=== PATIENT | female | born 1945 | race Caucasian/White ===

== ENCOUNTER 2017-01-30 16:17 | Emergency (ER) | payer MEDICARE, BC ==
--- NOTE | 2017-01-30 17:35 | CT REPORT ---
HISTORY: Fall without LOC COMPARISON: Head CT 07/17/2016 TECHNIQUE: Axial non-contrast images obtained from skull vertex through foramen magnum. Dose reduction technique was utilized. FINDINGS: BRAIN: There is no atrophy. No acute intracranial hemorrhage. No mass effect or hydrocephalus. There is n o CT evidence of infarction. BONES AND EXTRACRANIAL SOFT TISSUES: The orbits are unremarkable. The paranasal sinuses and mastoid air cells are clear. The calvarium is intact. Mild right frontal scalp soft tissue swelling. IMPRESSION: 1. No acute intracranial abnormality. 2. Mild right frontal scalp soft tissue swelling Final Electronic Signature: This report was electronically signed by Liam Plaza MD on 01/30/2017 5:33 PM. jan /
--- NOTE | 2017-01-30 18:17 | ER NURSING DOCUMENTATION ---
Nurse's Notes [facility] Name:Alejandra Clarke Age:72 yrs Sex:Female :1945 Arrival Date:01/30/2017 Time:16:17 Bed1 Private MD:Marisol Falk Diagnosis:Head Injury Presentation: 01/30 16:20 Acuity: DEVONTE 3 rh Triage Assessment: 16:43 General: Appears in no apparent distress, Behavior is cooperative. Pain: Complains of rh pain in HEADACHE. EENT: Oral mucosa is moist. Neuro: Level of Consciousness is awake, alert, obeys commands, Oriented to person, place, time, event, Operational Communication Chief are equal bilaterally Moves all extremities. Gait is steady, Speech is normal, Reports headache. Cardiovascular: Capillary refill < 3 seconds. Respiratory: Airway is patent. Derm: Skin is intact, is healthy with good turgor, Skin is pink, warm & dry. Injury Description: Laceration sustained to top of head is clean, superficial, 0.5 to 2.5 cm long, was sustained less than 30 minutes ago. is bleeding no active bleeding noted. Historical: - Allergies: Lovenox; - Home Meds: 1. Valtrex Oral 2. Trentinoin 3. Latisse 4. ProAir 5. Coumadin Oral 6. atorvastatin oral 7. Lasix Oral 8. Protonix Oral 9. pentoxifylline oral 10. Ambien Oral 11. Nystatin Topical 12. Norvasc Oral 13. carvedilol oral 14. Potassium Chloride Oral 15. Ferrous Sulfate Oral 16. Fentanyl Patch Topical 17. Probiotic Complex oral 18. Zyrtec Oral 19. Ramipril Oral 20. Aspirin Oral 21. Keflex Oral 22. Prednisone Oral 23. Aspirin Oral - PMHx: C-difficile; ANEMIA; HIGH CHOLESTEROL; Hypynatremia; Hypokalemia; HYPERTENSION; HEART MURMUR; SLEEP APNEA; DEPRESSION; Hip osteoaarthritis; Hypercoaguable state; Hyperparathyroidism; Pulmonary embolism; GERD; Sepsis (February 21, 2016); Hypoxemia; Endocarditis; Osteomyelitis of toe; LUPUS; DVT lower extremity, recurrent; peripheral neuropathy; Connective tissue disease; Head Contusion, Unspecified Part of Head (July 17, 2016); - PSHx: TUBAL LIGATION; C section; Arthroscopy shoulder; raynauds; - Tetanus: < 10 years. - Ebola Screening: : Patient negative for fever greater than or equal to 101.5 degrees Fahrenheit, and additional compatible Ebola Virus Disease symptoms. - Immunization history: Flu Vaccine < 1 year. - Social history: Smoking status: Patient states was never smoker of tobacco. Screenin:44 Infectious Disease Risk None. Abuse screen: Denies threats or abuse. Denies injuries rh from another. Nutritional screening: No deficits noted. Assessment: 16:44 See Triage Assessment done by same RN. rh Vital Signs: 16:44 BP 125 / 46; Pulse 58; Resp 17; Temp 98.6(O); Pulse Ox 94% on R/A; Weight 65.77 kg; rh Height 4 ft. 11 in. (149.86 cm); Pain 3/10; 16:44 Body Mass Index 29.29 (65.77 kg, 149.86 cm) rh ED Course: 16:19 Patient arrived in ED. ama 16:20 Marisol Falk MD is Private Physician. ama 16:20 Triage completed. rh 16:35 Marsha Davis is Primary Nurse. rh 16:40 Notified ED Physician of patient's arrival and chief complaint. Dr. Roberts. rh 16:44 Valuables Remains with patient Patient has correct armband on for positive rh identification. Bed in low position. Call light in reach. 17:07 Mateus Roberts MD is Attending Physician. be 17:55 Marisol Falk MD is Referral Physician. be Administered Medications: No medications were administered Outcome: 18:00 Discharge ordered by . be 18:17 Patient left the ED. sc1 Signatures: Sudha Lloyd, RN RN sc1 Mateus Roberts MD MD be Nate Garcia, Reg Reg ama Marsha Davis rh
--- NOTE | 2017-01-30 18:17 | ER PHYSICIAN DOCUMENTATION ---
Physician Documentation [facility] Name:Alejandra Clarke Age:72 yrs Sex:Female :1945 Arrival Date:01/30/2017 Time:16:17 Bed1 Private MD:Marisol Falk ED, Brian Disposition: 01/30/17 18:00 Discharged to Home/Self Care. Impression: Head Injury. - Condition is Good. - Discharge Instructions: HEAD INJURY, No Wake-Up (Adult). - Medical Reconciliation form form. - Follow up: Marisol Falk MD; When: As needed; Reason: Worsening of condition, Continuance of care. - Problem is chronic. - Symptoms have improved. HPI: 01/30 16:20 This 72 yrs old Female presents to ER with complaints of Laceration To Head. be 16:20 The laceration(s) is(are) located on the top of head. Onset: The symptom(s)/episode be began/occurred just prior to arrival. Associated signs and symptoms: Pertinent positives: dizziness, heavy bleeding, Pertinent negatives: deformity, loss of consciousness, suspected foreign body, Neck pain, N/V or focal deficit. Historical: - Allergies: Lovenox; - Home Meds: 1. Valtrex Oral 2. Trentinoin 3. Latisse 4. ProAir 5. Coumadin Oral 6. atorvastatin oral 7. Lasix Oral 8. Protonix Oral 9. pentoxifylline oral 10. Ambien Oral 11. Nystatin Topical 12. Norvasc Oral 13. carvedilol oral 14. Potassium Chloride Oral 15. Ferrous Sulfate Oral 16. Fentanyl Patch Topical 17. Probiotic Complex oral 18. Zyrtec Oral 19. Ramipril Oral 20. Aspirin Oral 21. Keflex Oral 22. Prednisone Oral 23. Aspirin Oral - PMHx: C-difficile; ANEMIA; HIGH CHOLESTEROL; Hypynatremia; Hypokalemia; HYPERTENSION; HEART MURMUR; SLEEP APNEA; DEPRESSION; Hip osteoaarthritis; Hypercoaguable state; Hyperparathyroidism; Pulmonary embolism; GERD; Sepsis (February 21, 2016); Hypoxemia; Endocarditis; Osteomyelitis of toe; LUPUS; DVT lower extremity, recurrent; peripheral neuropathy; Connective tissue disease; Head Contusion, Unspecified Part of Head (July 17, 2016); - PSHx: TUBAL LIGATION; C section; Arthroscopy shoulder; raynauds; - Tetanus: < 10 years. - Ebola Screening: : Patient negative for fever greater than or equal to 101.5 degrees Fahrenheit, and additional compatible Ebola Virus Disease symptoms. - Immunization history: Flu Vaccine < 1 year. - Social history: Smoking status: Patient states was never smoker of tobacco. ROS: 16:20 Skin: Positive for abrasion(s), vertex scalp w/o laceration of FB. be 16:20 All other systems are negative. Exam: 16:20 Head/Face: Normocephalic, vertex scalp abrasion w/o laceration or FB be Neck: Trachea midline, no thyromegaly or masses palpated, and no cervical lymphadenopathy. Supple, full range of motion without nuchal rigidity, or vertebral point tenderness. No Meningismus. 16:20 Neuro: Awake and alert, GCS 15, oriented to person, place, time, and situation. be Cranial nerves II-XII grossly intact. Motor strength 5/5 in all extremities. Sensory grossly intact. Cerebellar exam normal. Normal gait. 16:20 Musculoskeletal/extremity: Exam is negative for acute changes, bony tenderness, decreased range of motion, deformity. 16:20 Skin: Turgor: is excellent. Vital Signs: 16:44 BP 125 / 46; Pulse 58; Resp 17; Temp 98.6(O); Pulse Ox 94% on R/A; Weight 65.77 kg; rh Height 4 ft. 11 in. (149.86 cm); Pain 3/10; 16:44 Body Mass Index 29.29 (65.77 kg, 149.86 cm) rh MDM: 16:20 Data reviewed: vital signs, nurses notes, lab test result(s), radiologic studies, CT be scan, and as a result, I will discharge patient, Local wound care, reviewed CT/lab results, advised holding Coumadin at least 24 hours and repeat INR. 17:07 Patient medically screened. be 01/30 16:56 Order name: INR W/ CAPI DRAW; Complete Time: 07:33 EDMS 07 07:32 Interpretation: Abnormal. be 01/30 17:37 Order name: CAT SCAN; HEAD W/O CON [id number]; Complete Time: 07:33 EDMS 01/31 07:33 Interpretation: Normal. be Dispensed Medications: No medications were administered Signatures: Sudha Lloyd RN RN sc1 Mateus Roberts MD MD be Hofsess, Rachel
== END 2017-01-30 18:17 | disposition home or self-care (01) ==
LOC: ER 16:17
DX: S00.01XA Abrasion of scalp, initial encounter (principal); Z79.01 Long term (current) use of anticoagulants; I10 Essential (primary) hypertension; Z79.899 Other long term (current) drug therapy
CPT/HCPCS: 70450; 85610; 99281; 99282; 99283